=== PATIENT | female | born 1960 | race Two or more races ===

== ENCOUNTER 2022-06-01 16:29 | Emergency (ER) | payer BC | END 2022-06-01 18:46 | disposition home or self-care (01) | LOC: DL.ED 16:29 | DX: S09.90XA Unspecified injury of head, initial encounter (principal); E78.5 Hyperlipidemia, unspecified; I10 Essential (primary) hypertension; E11.9 Type 2 diabetes mellitus without complications; Z79.82 Long term (current) use of aspirin; W00.0XXA Fall on same level due to ice and snow, initial encounter | CPT/HCPCS: 70450; 99283 ==

== ENCOUNTER 2022-12-24 12:24 | Emergency (ER) | payer BC ==
[2022-12-24 13:20] LABS: BASOPHILS PERCENT AUTO 0.3 % (0.0-1.0); EOSINOPHILS PERCENT AUTO 3.2 % (1.0-3.0); HEMATOCRIT 38.8 % (37.0-47.0); LYMPHOCYTES PERCENT AUTO 34.9 % (20.5-50.1); MEAN CORPUSCULAR HEMOGLOBIN 32.2 pg (27.0-34.0); MEAN CORPUSCULAR HGB CONC 36.1 g/dL (33.0-35.0); MEAN CORPUSCULAR VOLUME 89.2 fL (80-100); NEUTROPHILS PERCENT AUTO 52.6 % (42.2-75.2); PLATELET COUNT,PLT 215 10^3/uL (150-450); RED BLOOD CELL COUNT 4.35 10^6/uL (4.2-5.4); WHITE BLOOD CELL COUNT,WBC 7.5 10^3/uL (5.0-10.0)
[2022-12-24 13:38] LABS: A/G RATIO 0.9; ALBUMIN 3.6 g/dL (3.4-5.0); ANION GAP 12.2 mEq/L (7-13); BILIRUBIN TOTAL 0.4 mg/dL (0.2-1.0); BUN/CREATININE RATIO 15.8 (No establ ref range); C-REACTIVE PROTEIN 0.08 ng/dL (<=0.30); CREATININE 0.76 mg/dL (0.55-1.02); EST CRCL DRUG DOSING (CG) 70.01 mL/min; POTASSIUM,K 4.2 mmol/L (3.5-5.1); PROTEIN TOTAL,TP 7.8 g/dL (6.4-8.2)
== END 2022-12-24 14:15 | disposition home or self-care (01) ==
LOC: DL.ED 12:24
DX: R51.9 Headache, unspecified (principal); R74.01 Elevation of levels of liver transaminase levels; E11.9 Type 2 diabetes mellitus without complications; Z79.82 Long term (current) use of aspirin
CPT/HCPCS: 36415; 70450; 80053; 85025; 86140; 99284

== ENCOUNTER 2023-12-12 06:24 | Day surgery (SDC) | payer BC ==
[~2023-12-12 06:24] MED LIST: Midazolam 1 MG/ML 2 ML SDV IV ONE; Midazolam 1 MG/ML 2 ML SDV ONE; fentaNYL 100 MCG/2 ML SDV IV ONE; fentaNYL 100 MCG/2 ML SDV ONE
[2023-12-12] MEDS: Dextrose 5%-0.45% NaCl 1,000 ML IV SCH (06:49)
[2023-12-12] MEDS: fentaNYL 100 MCG/2 ML SDV IV ONE ×2 (07:06→07:07)
[2023-12-12] MEDS: Midazolam 1 MG/ML 2 ML SDV IV ONE ×6 (07:07→07:19)
== END 2023-12-12 08:57 | disposition home or self-care (01) ==
LOC: DL.ENDO 06:24
PROVIDERS: ATTEND Internal Medicine Gastroenterology
DX: Z12.11 Encounter for screening for malignant neoplasm of colon (principal); D21.4 Benign neoplasm of connective and other soft tissue of abdomen; K62.1 Rectal polyp; J44.9 Chronic obstructive pulmonary disease, unspecified; E11.9 Type 2 diabetes mellitus without complications; R79.89 Other specified abnormal findings of blood chemistry; Z86.0100 Personal history of colon polyps, unspecified
CPT/HCPCS: 45385; J2250; J3010; J7799

== ENCOUNTER 2024-12-22 12:08 | Emergency (ER) | payer BC | END 2024-12-22 13:22 | disposition home or self-care (01) | LOC: DL.ED 12:08 | DX: S29.011A Strain of muscle and tendon of front wall of thorax, initial encounter (principal); E78.00 Pure hypercholesterolemia, unspecified; E11.9 Type 2 diabetes mellitus without complications; Z79.84 Long term (current) use of oral hypoglycemic drugs; Z79.82 Long term (current) use of aspirin; Z79.899 Other long term (current) drug therapy; Z90.710 Acquired absence of both cervix and uterus; X58.XXXA Exposure to other specified factors, initial encounter | CPT/HCPCS: 71101-RT; 99283; A9270-GY ==